=== PATIENT | female | born 1965 | race Caucasian/White ===

== ENCOUNTER → 2016-09-07 | Outpatient (CLI) | payer OTHER ==
[~2016-09-07] MED LIST: ALBUAER19 INH; ATOR10TA88 PO; CHOL100027 PO; DEXT30LI PO; DICL1GEL12 TOP; EFF/375 PO; EPP3/2 IM; FAMO1TAB47 PO; FLUT0.15; GABA-113 PO; GLC/500 PO; HYDR-3124 PO; HYDR-5688 PO; LOSA50TA6 PO; MONT1TAB3 PO; MULT-223 PO; OXYC-57 PO; PSEU60TA80 PO; RIZA5TAB10 PO; RXC5 PO; TIZA2CAP PO; TOPI100T20 PO; VENL150C PO
--- NOTE | 2016-09-07 16:07 | DIAGNOSTIC IMAGING REPORT ---
CT SCAN OF THE CHEST WITHOUT IV CONTRAST CLINICAL HISTORY: Dyspnea. COMPARISON STUDY: Chest CT dated 09/21/2013. Chest x-ray dated 05/04/2016. TECHNIQUE: CT scan of the thorax was performed from the thoracic inlet to the upper abdomen. Images are reviewed in the axial, sagittal, and coronal planes. IV contrast was not administered for this examination as per the referring clinician. The examination is degraded by large body habitus, and streak artifact in the body wall abutting the CT gantry. There is also streak artifact from the left arm which could not be elevated above the chest. CT DOSE: 1336.64 mGy.cm FINDINGS: Thyroid: Imaged portions of the thyroid gland are normal in size and attenuation. Thoracic aorta: The thoracic aorta is normal in caliber and demonstrates standard 3-vessel arch anatomy. Heart: The heart is normal in size and without pericardial effusion. The pulmonary trunk is normal in caliber. Lungs and pleural spaces: There are scattered calcified granulomas. The lungs and pleural spaces are otherwise clear. The trachea and central airways are patent. Mediastinum: There is no mediastinal lymphadenopathy. Glendy: Not well assessed without IV contrast. Axillae: There is no axillary lymphadenopathy. Upper abdomen: The liver is enlarged and there is severe hepatic steatosis. Partially visualized upper abdominal viscera is within normal limits. Skeletal structures: No lytic or blastic bony lesions are seen. IMPRESSION: 1. The lungs are clear. 2. Severe hepatic steatosis. Electronically signed by: Law Cid M.D. 09/07/2016 4:05 PM Dictated Date/Time: 09/07/2016 4:01 PM
== END | disposition home or self-care (01) ==
LOC: C.CTS 15:53
PROVIDERS: ATTEND Internal Medicine Pulmonary Disease
DX: R06.02 Shortness of breath (principal); K76.0 Fatty (change of) liver, not elsewhere classified

== ENCOUNTER → 2016-12-20 | Outpatient (CLI) | payer OTHER ==
[~2016-12-20] MED LIST changes: +ATOR10TA82 PO; -ATOR10TA88 PO; +COEN1CAP17 PO; +EFFSR150 PO; +EFFSR75 PO; +FEXO1TAB46 PO; +GLIP2.5T11 PO; +OXYC1TAB3 PO; +POTA550T4 PO; +SITA1TAB27 PO; +SODI10IN5 INJ; +TRAM-10 PO
[2016-12-20 15:58] LABS: BLOOD UREA NITROGEN 12 mg/dl (7-18); CREATININE 0.73 mg/dl (0.60-1.20)
== END | disposition home or self-care (01) ==
LOC: C.LAB 14:35
PROVIDERS: ATTEND Orthopaedic Surgery Sports Medicine
DX: Z01.812 Encounter for preprocedural laboratory examination (principal)

== ENCOUNTER 2017-01-19 05:25 | Day surgery (SDC) | payer OTHER ==
[2017-01-13 14:00] VITALS: Ht 174 cm; Wt 128.5 kg
--- NOTE | 2017-01-13 14:35 | PAT Medication Instructions ---
Service Date January 13, 2017. Current Home Medication List Atorvastatin (Lipitor), 10 MG PO HS Cholecalciferol (Vitamin D 1000 Unit), 2,000 INTER.UNIT PO QAM Dextromethorphan Polistirex (Delsym), 5 ML PO PRN Epinephrine (Epipen), 0.3 MG IM UD Famotidine (Famotidine), 20 MG PO QAM Gabapentin (Neurontin), 900 MG PO TID Hydrocodone/Acetaminophen 5MG/325MG ([place] 5MG/325MG), 1 TABLET PO Q6H PRN for N Losartan Potassium (Cozaar), 50 MG PO QAM Metformin Hcl (Glucophage), 500 MG PO BID Montelukast Sodium (Singulair), 1 TAB PO HS Multiple Vitamins W/ Minerals (Multi For Her 50+), 1 TAB PO QAM Pseudoephedrine-Guaifenesin (Mucinex D), 1 TAB PO BID PRN for PRN Rizatriptan Benzoate (Maxalt), 5 MG PO TID PRN for prn Venlafaxine Hcl (Effexor Xr), 150 MG PO QAM Venlafaxine Hcl (Effexor), 37.5 MG PO QAM Medication Instructions For Your Scheduled Surgery Epinephrine (Epipen), 0.3 MG IM UD (use as directed if needed) - Hold the following medications 48 hours prior to surgery: Metformin Hcl (Glucophage), 500 MG PO BID - Hold the following medications the morning of surgery: Multiple Vitamins W/ Minerals (Multi For Her 50+), 1 TAB PO QAM Pseudoephedrine-Guaifenesin (Mucinex D), 1 TAB PO BID PRN for PRN Losartan Potassium (Cozaar), 50 MG PO QAM Dextromethorphan Polistirex (Delsym), 5 ML PO PRN Cholecalciferol (Vitamin D 1000 Unit), 2,000 INTER.UNIT PO QAM - Take the following medications the morning of surgery with a sip of water: Venlafaxine Hcl (Effexor Xr), 150 MG PO QAM Venlafaxine Hcl (Effexor), 37.5 MG PO QAM Rizatriptan Benzoate (Maxalt), 5 MG PO TID PRN for prn Famotidine (Famotidine), 20 MG PO QAM Gabapentin (Neurontin), 900 MG PO TID Hydrocodone/Acetaminophen 5MG/325MG ([place] 5MG/325MG), 1 TABLET PO Q6H PRN for N (if needed okay to take up to 4 hours prior to surgery) - Take the following medications as scheduled the night before surgery: Rizatriptan Benzoate (Maxalt), 5 MG PO TID PRN for prn Montelukast Sodium (Singulair), 1 TAB PO HS Gabapentin (Neurontin), 900 MG PO TID Dextromethorphan Polistirex (Delsym), 5 ML PO PRN Atorvastatin (Lipitor), 10 MG PO HS Hydrocodone/Acetaminophen 5MG/325MG ([place] 5MG/325MG), 1 TABLET PO Q6H PRN for N If you have any questions please call us at [phone] or [phone] or [phone]
[2017-01-13 15:09] LABS: COMPLETE YES; EOS % 0.2 %; HEMATOCRIT 40.2 % (37-47); IG% 0.2 %; LYMPH % 34.3 %; LYMPH ABS # 2.23 K/uL (1.2-3.4); MEAN CELL VOLUME 92.8 fL (80-100); MEAN CORPUSCULAR HEMOGLOBIN 30.9 pg (25-34); MEAN CORPUSCULAR HGB CONC 33.3 g/dl (32-36); MEAN PLATELET VOLUME 10.3 fL (7.4-10.4); MONO % 8.9 %; NEUT % 56.4 %; PLATELET COUNT 180 K/uL (130-400); RED BLOOD COUNT 4.33 M/uL (4.2-5.4); WHITE BLOOD COUNT 6.51 K/uL (4.8-10.8)
[2017-01-13 15:33] LABS: PARTIAL THROMBOPLASTIN RATIO 1.1; PROTHROMBIN TIME (PATIENT) 10.4 SECONDS (9.0-12.0)
--- NOTE | 2017-01-18 18:01 | HISTORY & PHYSICAL EXAMINATION ---
DATE OF ADMISSION: 01/19/2017 CHIEF COMPLAINT: Chronic right shoulder pain. HISTORY OF PRESENT ILLNESS: This is a 51-year-old female patient of Dr. Welch'jenny complaining of right shoulder pain for approximately several months now. She had a rotator cuff repair in 2009, recently no injury. She had an MRI done with an arthrogram which showed possible SLAP injury and biceps injury. PAST MEDICAL HISTORY: Hypertension, hypercholesterolemia, sleep apnea with the use of CPAP, anxiety, diabetes mellitus, hypothyroidism, spine problems, sciatica, obesity, dental issues. SOCIAL HISTORY: Nonsmoker, nondrinker. She does use marijuana. PAST SURGICAL HISTORY: Left shoulder x2, right shoulder x1, back surgery and C-sections x2. FAMILY HISTORY: Noncontributory. REVIEW OF SYSTEMS: The patient complains of chronic right shoulder pain. Otherwise, denies any shortness of breath, chest pain, nausea, vomiting or any other joint complaints. MEDICATIONS: Include: 1. Atorvastatin 10 mg at bedtime. 2. Effexor 150 mg daily. 3. Gabapentin 600 mg t.i.d. 4. Pepcid 20 mg daily. 5. Losartan 50 mg daily. 6. Metformin 2 tablets 500 mg daily. 7. Benzoate 5 mg for headaches p.r.n. 8. Vicodin as needed. 9. Singulair 10 mg at bedtime p.r.n. 10. Vitamin daily. 11. Vitamin D 1000 units daily. ALLERGIES: DULOXETINE, CLINDAMYCIN, ASPIRIN AND ANTI-INFLAMMATORIES WHICH IS AN ANAPHYLACTIC INCLUDING ASPIRIN. PHYSICAL EXAMINATION: GENERAL: Well-developed, well-nourished 51-year-old female in no acute distress. She is alert and oriented x3 and pleasant. HEENT: Normocephalic, atraumatic. Extraocular motions are intact. Pupils are equal and reactive to light. HEART: Regular rate and rhythm, no murmurs appreciated. LUNGS: Clear. ABDOMEN: Soft, nontender, bowel sounds present. EXTREMITIES: Right shoulder reveals a positive [place]'s, positive cross chest, positive impingement sign, positive Speed's. She has full range of motion with pain. She has 5/5 strength with pain. NEUROLOGIC: Neurovascularly, she is intact in her right upper extremity. DIAGNOSES: Right shoulder biceps tendonitis and possible SLAP tear. She also has a history of hypertension, hypercholesterolemia, sleep apnea with the use of CPAP, anxiety, hypothyroidism, diabetes mellitus, spine problems, sciatica, obesity, and dental issues. PLAN: The patient was advised of her diagnosis. Indications, risks, benefits, and postop course have all been reviewed. The patient wishes to proceed with a right shoulder arthroscopic SLAP repair with or without a biceps tenodesis versus tenotomy. Necessary consent forms, preoperative testing and clearances will be obtained. MICKY
[~2017-01-19] VITALS: Ht 174 cm; Wt 128.5 kg
[~2017-01-19 05:25] MED LIST changes: -ALBUAER19 INH; -COEN1CAP17 PO; -DICL1GEL12 TOP; -EFFSR150 PO; -EFFSR75 PO; -FEXO1TAB46 PO; -FLUT0.15; -GLIP2.5T11 PO; -HYDR-3124 PO; -OXYC-57 PO; -OXYC1TAB3 PO; -POTA550T4 PO; -RXC5 PO; -SITA1TAB27 PO; -SODI10IN5 INJ; -TIZA2CAP PO; -TOPI100T20 PO; -TRAM-10 PO
[2017-01-19] MEDS ORDERED: LACTATED RINGER'S 1000ML 1,000 ML IV SCH (06:00)
[2017-01-19] MEDS ORDERED: VANCOMYCIN INJ 1,900 MG in SODIUM CHLORIDE 0.9% 500ML 500 ML IV SCH (06:00)
[2017-01-19 06:16] VITALS: BP 155/86; PULSE 66; TEMP 36.7; O2SAT 97
[2017-01-19] MEDS ORDERED: BUPIVACAINE 0.5 % 5 MG/1 ML PF 10ML VIAL ONE (06:30)
[2017-01-19] MEDS ORDERED: MEPIVACAINE HCL 1.5% 30 ML VIAL ONE (06:30)
[2017-01-19] MEDS ORDERED: CLONIDINE HCL 100 MCG/ML SYRINGE ONE (06:30)
[2017-01-19] MEDS ORDERED: MIDAZOLAM HCL 1 MG/ML 2ML VIAL ONE (07:02)
[2017-01-19] MEDS ORDERED: KETAMINE HCL INJ 50 MG/ML 10 ML VIAL ONE (07:03)
[2017-01-19] MEDS ORDERED: FENTANYL CITRATE INJ 50 MCG/1 ML 2 ML VIAL ONE (07:03)
--- NOTE | 2017-01-19 07:03 | History & Physical Bridge Note ---
H&P Re-Evaluation Bridge Note: I have examined the patient, reviewed the History & Physical and in the interval since the performance of the History & Physical I have noted the following changes of clinical significance: No changes noted
[2017-01-19] MEDS ORDERED: EpINEphrine HCL INJ 1 MG/ML 5ML SYRINGE ONE (07:11)
[2017-01-19] MEDS ORDERED: GLYCOPYRROLATE INJ 0.2 MG/ML VIAL ONE (08:15)
[2017-01-19] MEDS ORDERED: SUCCINYLCHOLINE 100MG/5ML SYR IV ONE (08:15)
[2017-01-19] MEDS ORDERED: LARYING-O-JET KIT (LTA) EXT ONE ×2 (08:15)
[2017-01-19] MEDS ORDERED: PROPOFOL IV EMULSION 10 MG/ML 20 ML VIAL IV ONE (08:15)
[2017-01-19] MEDS ORDERED: DEXAMETHASONE SOD INJ 4 MG/ML VIAL ONE (08:15)
[2017-01-19] MEDS ORDERED: LIDOCAINE HCL 2% 2 ML VIAL (20MG/ML) ONE (08:15)
[2017-01-19] MEDS ORDERED: NEOSTIGMINE METHYLSULFATE 5 MG/5 ML SYR ONE (08:15)
[2017-01-19] MEDS ORDERED: CISATRACURIUM BESYLATE IV SOLN 2 MG/ML 10 ML VIAL ONE (08:15)
[2017-01-19] MEDS ORDERED: METOCLOPRAMIDE HCL INJ 5 MG/ML 2 ML VIAL ONE (08:15)
[2017-01-19] MEDS ORDERED: EpHEDrine SULFATE INJ 50 MG/ML AMP ONE (08:53)
[2017-01-19] MEDS ORDERED: SODIUM CHLORIDE 0.9% 1000ML 1,000 ML IV SCH (09:21)
[2017-01-19] MEDS ORDERED: OXYC-57 PO (09:25)
--- NOTE | 2017-01-19 09:27 | Discharge Instructions ---
Discharge Instructions Date of Service January 19, 2017. Visit Reason for Visit: Right Shoulder Labral Tear, A/C Joint Arthritis, B Discharge Discharge Diagnosis / Problem: right shoulder arthroscopy, labral repair Discharge Goals Goal(s): Decrease discomfort, Improve function, Increase independence Activity Recommendations Activity Limitations: as noted below Anesthesia . Post Anesthesia Instructions: If you have had General Anesthesia or IV Sedation: * Do not drive today. * Resume driving when surgeon permits. * Do not make important decisions or sign legal documents today. * Call surgeon for: 1. Temperature elevations greater than 101 degrees F. 2. Uncontrollable pain. 3. Excessive bleeding. 4. Persistent nausea and vomiting. 5. Medication intolerance (nausea, vomiting or rash). * For nausea and vomiting use only clear liquids such as: tea, soda, bouillon until nausea subsides, then gradually increase diet as tolerated. * If you have any concerns or questions, call your surgeon's office. If physician is unavailable and it is an emergency, call 911 or go to the nearest emergency room. . Instructions / Follow-Up Instructions / [place] [facility] [place]: SHOULDER ARTHROSCOPY AND LABRAL REPAIR SELF CARE INSTRUCTIONS A. You are permitted to loosen your sling/immobilizer to move your elbow, wrist , and hand to prevent stiffness. You should use your well arm (good arm) to assist the operated extremity when trying to raise the arm away from the body, hygiene purposes. Do NOT actively try to use/engage your shoulder muscles in operative arm at this time. You should NOT do overhead activity, lifting, or attempt to reach behind your back. B. You may/may not be instructed to start Physical Therapy upon discharge depending upon the size and difficulty of the repair. You will be provided a prescription for therapy with specific restrictions, if needed, at time of discharge. C. At 48 hours post-operatively, you may change your dressing. (Leave white steri-strips intact if present). Use band-aids and change daily. You are allowed to shower at this time and get the incision area wet, but DO NOT soak or submerge incision area in water. (No baths, swimming pools, hot tubs) D. Do NOT apply soap or any ointment/lotions directly over incision. E. You may use ice as needed to operative shoulder SPECIAL CARE INSTRUCTIONS: VERY IMPORTANT TO READ AND REVIEW A. There are a few signs you need to watch for after you are home. Call [facility] at [phone] if you experience any of the following: a. Increased severe shoulder pain. Some pain is expected especially when you exercise b. Increased swelling in your shoulder or arm; pain or swelling in either upper extremity. (Note: swelling and stiffness is normal and expected for several weeks post op, depending on type of shoulder surgery you had). c. Any fluid or drainage from the incision; redness of the incision. d. Shortness of breath or chest pain. B. Please call [facility] at [phone] if you have any questions or concerns about your operation or recovery. C. Call your physician if: a. Temperature is greater than 101 degrees (F). b. Pain is not relieved by prescribed pain medications. c. Increase drainage or redness from incision. d. Unanswered questions or concerns. D. Pain Medication: a. You will be prescribed pain medication upon discharge that should last till your first post-operative appointment. b. If you experience nausea and/or skin rash, discontinue this medication and contact our office for an alternative medication. c. Caution- narcotic pain medication can cause constipation. FOLLOW UP VISIT: Please call [facility] at [phone] to schedule a follow up appointment 10-14 days from your surgery date. Diet Recommendations Recommended Home Diet: resume previous diet Procedures Procedures Performed: Right Shoulder Arthroscopy, Anterior Labral Repair, Subchromial Decompression, Distal Clavicle Excision and Extensive Debridement, Biceps Tenotomy Pending Studies Studies pending at discharge: no Medical Emergencies . Who to Call and When: Medical Emergencies: If at any time you feel your situation is an emergency, please call 911 immediately. . Non-Emergent Contact Non-Emergency issues call your: Primary Care Provider, Surgeon . . "Provider Documentation" section prepared by Hector Lyon. . [place] Drug Monitoring Program Search Results: patient reviewed within database, no issues identified
[2017-01-19] MEDS ORDERED: OXYCODONE/ACETAMINOPHEN 5-325 TAB PO PRN ×2 (09:30)
--- NOTE | 2017-01-19 09:40 | [facility] Operative Report ---
Operative Report Operative Date January 19, 2017. Pre-Operative Diagnosis Right shoulder biceps tendonitis, right labrum tear,acj arthritis Post-Operative Diagnosis same subacromial impingement,bursitis ,djd oa glenohumeral,biceps tendinopa Procedure(s) Performed right shoulder arthroscopy with decompression and distal clavicle excision and anterior labral repair and extensive debridement Surgeon Dr. Welch Savings Counselor Surgeon(s) none Estimated Blood Loss 5 cc Findings as above Specimens none per surgeon Anesthesia regional and general Complication(s) None Disposition Recovery Room / PACU Indications chronic pain I attest to the content of the Intraoperative Record and any orders documented therein. Any exceptions are noted below.
--- NOTE | 2017-01-19 10:12 | Anesthesiology Progress Note ---
Anesthesia Post Op Note Date & Time January 19, 2017 at 10:11 Vital Signs Pain Intensity: 0 Vital Signs Past 12 Hours Date Time Temp Pulse Resp B/P Pulse Ox O2 Delivery O2 Flow Rate FiO2 01/19/17 10:00 36.3 67 18 146/80 94 Nasal Cannula 2 01/19/17 09:50 63 18 151/84 99 Mask 8 01/19/17 09:40 63 18 165/87 100 Mask 10 01/19/17 09:30 36.0 56 16 171/92 99 Mask 15 01/19/17 06:16 36.7 66 18 155/86 97 Room Air Notes Mental Status: alert / awake / arousable, participated in evaluation Pt Amnestic to Procedure: Yes Nausea / Vomiting: adequately controlled Pain: adequately controlled Airway Patency, RR, SpO2: stable & adequate BP & HR: stable & adequate Hydration State: stable & adequate Anesthetic Complications: no major complications apparent
[2017-01-19] MEDS ORDERED: ATROPINE SULFATE 0.1 MG/ML 5ML SYR IV PRN (10:15)
[2017-01-19] MEDS ORDERED: EpHEDrine SULFATE INJ 50 MG/ML AMP IV PRN (10:15)
[2017-01-19 10:20] VITALS: BP 156/81; PULSE 70; TEMP 37.1; O2SAT 95
[2017-01-19 10:50] VITALS: BP 140/63; PULSE 70; TEMP 37; O2SAT 96
[2017-01-19 11:20] VITALS: BP 144/68; PULSE 69; TEMP 37.1; O2SAT 98
--- NOTE | 2017-01-19 11:49 | OPERATIVE REPORT ---
DATE OF OPERATION: 01/19/2017 INDICATION FOR PROCEDURE: A 51-year-old female with chronic right shoulder pain. History of previous rotator cuff repair of that shoulder. She has failed conservative management. Her preop x-rays demonstrate she has a narrowed AC joint with AC joint arthritis. She has some inferior spurs at the AC joint. She had had a previous decompression surgery. Her MRI demonstrates significant fluid in the AC joint consistent with arthritis. She does have some substantial spurs in the medial aspect of the acromion causing subacromial impingement. She has an intact rotator cuff repair. She has biceps tendinopathy deep in the bicipital groove. She has an anterior inferior labral tear and possibly could have a SLAP tear. She is also morbidly obese, BMI is 42.4. PREOPERATIVE DIAGNOSES: Right shoulder anterior labral tear, biceps tendinopathy, history of rotator cuff repair, history of previous decompression with continued impingement and acromioclavicular joint arthritis. POSTOPERATIVE DIAGNOSES: Same including both degenerative and traumatic anterior labral tear with unstable anterior inferior labrum with DJD glenohumeral joint with biceps tendonopathy with intact rotator cuff repair with chronic subacromial bursitis, bursal adhesions with subacromial impingement and acromioclavicular joint arthritis. PROCEDURES: Right shoulder arthroscopic repair anterior inferior labrum with revision subacromial decompression and a distal clavicle excision and extensive debridement and a tenotomy of the biceps and increased difficulty due to BMI of 42.4. SURGEON: Dr. Welch. TEMPLATE CLERK: None. ANESTHESIA: Regional block and general. OPERATION AND FINDINGS: OPERATIVE PROCEDURE: The patient taken to the operating room, anesthetized under regional block and general anesthetic. [facility] in a 70 degree beach chair position. Right shoulder exam demonstrates she had some ligamentous laxity, good range of motion of her shoulder, very obese arm. The right upper extremity was prepped and draped in sterile fashion. We used ChloraPrep. She had vancomycin antibiotic preop. Arthroscopy was started with a posterior arthroscopy portal in the soft spot, lateral portal in the subacromial space, anterior portal in the rotator interval. Intra-articular findings demonstrated that she had some grade 3 wear on the humeral head, more toward the anterior aspect of the humeral head toward the mid articular surface area. She had some superficial delaminating flaps and fraying. The rotator cuff repair was intact. Subscapularis was intact. The biceps tendon intraarticularly looked good but when it was withdrawn into the joint there was clearly fraying tendinopathic findings extending deep into the bicipital groove. There was no evidence of a SLAP tear, but there was a little bit of fraying in the superior labrum and the anterior inferior labrum at the area between the 4 and 5 o'clock position had a complete disruption from the anterior glenoid with exposed bone underneath the labrum. The inner margin of the labrum was frayed. Just superior to that at the 3 o'clock position middle glenohumeral ligament was still attached to the labrum which was still attached to the glenoid. Inferiorly, the labrum was attached normally at the 6 o'clock position. There was some generalized synovitis in the joint. In the subacromial space, there was some chronic bursal adhesions, subacromial bursitis. There was some substantial spurs in the anterior medial facet to the acromion with a type 3 shape to that portion of the acromion. There was large inferior AC joint facet spurs causing impingement. There was a hypertrophic AC joint with arthritis noted in the AC joint. The rotator cuff bursal surface had some fraying of the cuff tissue, but was not torn anywhere and was completely intact through full motion. There was subacromial impingement. Starting in the glenohumeral joint, I debrided the articular surfaces of the humeral head. I debrided the labrum, debrided the glenoid attachment to rough up the bony surface to a good bleeding surface for repair of the labrum. I did a debridement of biceps tendon and then did a tenotomy using a radiofrequency ablator. I debrided back some of the superior labrum. I did some partial synovectomy and ablated some bleeders with a radiofrequency ablator. The labrum was then repaired using a 1.3 mm FiberTak Arthrex suture tape anchor. We used a 25 degree angled suture passer to pass a suture. Tied these down with Taylor sliding locking knot 3 reverse half hitches on alternating posts. Post was placed on the capsular side and knot was well off the joint and the repair was secure. The arthroscopic instrumentation was then placed into the subacromial space, did a thorough subacromial bursectomy, debrided the bursal surface of the rotator cuff, used an ablator to remove any periosteum bursa on the undersurface of the acromion, ablated the inferior AC joint capsule which was already partially torn, but ablated some more of it to expose 1 cm of distal clavicle. A 4.5 bur was used to plane down the acromion to a type 1 flat shape removing all of the spurs and also 1 cm distal clavicle was resected maintaining the superior and posterior capsule for stability. All debris was irrigated out of the subacromial space. The portal sites were closed with nylon sutures. Sterile dressings were applied and a shoulder immobilizer. There was increased difficulty due to her BMI of 42. She tolerated the procedure well. I attest to the content of the Intraoperative Record and any orders documented therein. Any exceptio ns are noted below.
[2017-06-20] MEDS ORDERED: POTA550T4 PO (15:25)
[2017-06-20] MEDS ORDERED: FEXO1TAB46 PO (15:25)
[2017-06-20] MEDS ORDERED: TRAM-10 PO (15:25)
[2017-06-20] MEDS ORDERED: SODI10IN5 INJ (15:25)
[2017-06-20] MEDS ORDERED: COEN1CAP17 PO (15:25)
== END 2017-01-19 11:40 | disposition home or self-care (01) ==
LOC: C.ACU 05:25
PROVIDERS: ATTEND Orthopaedic Surgery Sports Medicine
DX: M19.011 Primary osteoarthritis, right shoulder (principal); M25.811 Other specified joint disorders, right shoulder; S46.801A Unspecified injury of other muscles, fascia and tendons at shoulder and upper arm level, right arm, initial encounter; M75.51 Bursitis of right shoulder; X58.XXXA Exposure to other specified factors, initial encounter; I10 Essential (primary) hypertension; E78.00 Pure hypercholesterolemia, unspecified; G47.30 Sleep apnea, unspecified; E11.9 Type 2 diabetes mellitus without complications; E03.9 Hypothyroidism, unspecified; F41.9 Anxiety disorder, unspecified; E66.9 Obesity, unspecified; Z68.41 Body mass index [BMI] 40.0-44.9, adult; Z79.84 Long term (current) use of oral hypoglycemic drugs; Z79.899 Other long term (current) drug therapy

== ENCOUNTER 2017-06-12 13:27 | Emergency (ER) | payer OTHER ==
[~2017-06-12] VITALS: Ht 172.7 cm; Wt 122.0 kg
[~2017-06-12 13:27] MED LIST changes: -HYDR-5688 PO; +OXYC-57 PO
[2017-06-12 13:55] VITALS: TEMP 36.8; Ht 172.7 cm; Wt 122.0 kg
[2017-06-12] MEDS ORDERED: GLIP2.5T11 PO (14:41)
[2017-06-12] MEDS ORDERED: SITA1TAB27 PO (14:41)
[2017-06-12] MEDS ORDERED: EFFSR150 PO (14:46)
[2017-06-12] MEDS ORDERED: EFFSR75 PO (14:46)
--- NOTE | 2017-06-12 15:13 | DIAGNOSTIC IMAGING REPORT ---
R KNEE 3 VIEWS CLINICAL HISTORY: Right knee pain COMPARISON: None. DISCUSSION: There are mild osteoarthritic changes. No fractures are visualized. There are no destructive lesions. IMPRESSION: No fractures identified. Electronically signed by: Hilario Delacruz M.D. 06/12/2017 3:12 PM Dictated Date/Time: 06/12/2017 3:11 PM
--- NOTE | 2017-06-12 15:13 | DIAGNOSTIC IMAGING REPORT ---
R HIP UNILATERAL 2 VIEWS CLINICAL HISTORY: Right hip pain COMPARISON: None. DISCUSSION: No fractures or dislocations are visualized. IMPRESSION: No fractures or dislocations identified. Electronically signed by: Hilario Delacruz M.D. 06/12/2017 3:11 PM Dictated Date/Time: 06/12/2017 3:10 PM
--- NOTE | 2017-06-12 15:14 | DIAGNOSTIC IMAGING REPORT ---
R FEMUR 2 VIEWS ROUTINE CLINICAL HISTORY: Right leg pain COMPARISON: None. DISCUSSION: No fractures are visualized. There are no erosive or destructive changes. IMPRESSION: No fractures identified. No destructive lesions are visualized. Electronically signed by: Hilario Delacruz M.D. 06/12/2017 3:12 PM Dictated Date/Time: 06/12/2017 3:12 PM
[2017-06-12] MEDS ORDERED: OXYC1TAB3 PO (15:39)
[2017-06-12 16:07] VITALS: BP 128/69; PULSE 89; O2SAT 95
--- NOTE | 2017-06-13 13:10 | EMERGENCY ROOM VISIT NOTE ---
ED Visit Note First contact with patient: 14:15 Chief Complaint: I hurt my right knee. History of Present Illness: Ms. Chamorro is a 52-year-old white female who ambulates into the ED accompanied by female friend complaining of right knee pain. Historically patient denies any previous significant injuries or surgeries to her right knee. She does report she has a history of severe neuropathy in her lower extremities and she is currently in physical therapy for her lower extremities; she relates that she has had 5 muscular problems including a tight muscles and fascia. Patient reports approximately one hour before she arrived in the emergency department she reports she ran 3 steps with her grandson heard a cracking noise and had severe pain in her right knee. Since that time her pain has been constant. She places her discomfort over the right knee. She rates her discomfort 7/10. She reports her pain is radiating up her thigh and in towards her right hip and down her leg to the level of the ankle. Her pain worsens with ambulation, palpation of the hip, thigh and knee, flexion of the knee beyond 90 and all movements of the hip. She denies back pain, ankle pain, foot pain, leg weakness, worsening numbness/ tingling. Review of Systems: As noted above in history of present illness. Past Medical History: As previously noted, diabetes, hypertension, bronchitis, pneumonia, status post section, unspecified knee surgeries and unspecified lumbar back surgery. Current Medications: Vitamin D, multivitamins, Maxalt, Glucophage, Neurontin, Cozaar, glipizide, Effexor, Famotidine, Januvia. Allergies to Medications: NSAIDs, penicillin. Social History: Patient is currently employed; she feels safe in her home environment; she denies tobacco use and admits to alcohol use. Physical Examination: Vital Signs: Date Time Temp Pulse Resp B/P (MAP) Pulse Ox O2 Delivery O2 Flow Rate FiO2 06/12/17 16:07 89 20 128/69 95 06/12/17 13:55 36.8 102 20 136/86 93 Room Air GENERAL: 52-year-old female in mild to moderate distress due to pain, nontoxic- appearing, afebrile and hemodynamically stable. NEUROLOGICAL: Awake, alert and oriented to person, place and time. Answering questions appropriately and following commands. SKIN: Warm, dry and pink. No soft tissue eruptions or trauma noted. BACK: No tenderness over the thoracic or lumbar bony spine or in the paraspinous musculature. RIGHT LOWER EXTREMITY: No gross bony deformity. No shortening or malrotation. Moderate tenderness over the hip joint including the greater trochanter and upper femoral shaft without bony deformity, bony crepitus, swelling. Moderate tenderness over the lateral aspect including the lateral aspect of the hamstring and quadriceps muscle groups without muscle defect, swelling or ecchymosis. Moderate tenderness over the anterior knee without bony deformity or crepitus. No tenderness over the patellar tendon, medial and lateral joint line or posterior knee. Mild tenderness throughout the anterior lower leg over the tibial plateau without bony deformity, bony crepitus, swelling or ecchymosis. Unable to perform range of motion exercises at the hip due to pain with all movement including internal and neck sternal rotation. Negative patellar apprehension test. Negative ballottement test. No laxity of the collateral and cruciate ligaments. Unable to perform a Dami's test because of pain and limited range of motion. Full range of motion in plantar flexion, dorsiflexion, inversion and eversion of the ankle. No ligamentous laxity at the level of the ankle. Throughout the foot the skin was warm and pink and capillary refill is brisk. She had difficulty assessing light sensations but did report when I pushed on her great toe she had paresthesias throughout the foot and up the anterior portion of her lower leg. She has 4/5 muscle strength and plantar flexion and dorsiflexion of the ankle. ED Course: Patient is assessed as noted above. Patient's medication list was reviewed. Femur X-Rays: Were read by myself and the radiologist showing no acute fractures and no erosion or distracted changes. Hip X-Rays: Were read by myself and the radiologist showing no acute fractures or dislocations. Knee X-Rays: Were read by myself and the radiologist showing no acute fractures or dislocations. Radiologist shows mild osteoarthritic changes but no destructive lesions. I did have a lengthy conversation with the patient primarily about mobility and her pain. She expressed concerns that she could not bear weight because of the intensity of her pain. She does report she has a wheelchair and I recommended that she use this but she said that would be difficult in her current living situation. She also reports that she is out of her narcotic pain medication that she normally gets from her orthopedist. I did tell her I would give her a short 3 day prescription of her OxyIR and we could trial her on a walker; she refused walker. A knee immobilizer was offered and she accepted. Patient was educated about today's findings and instructed on her treatment plan ; she verbalized understanding and agreement with this plan. Clinical Impression: Right anterior knee pain. Right hip, thigh and lower leg pain. Decision-Making: Initially my differential diagnosis I considered knee fracture , patellar dislocation, hip fracture, hip dislocation, muscle strain, patellar tendon rupture and other causes. Disposition: Patient discharged home in stable condition accompanied by female friends; prior to discharge she was reassessed and subjectively reported she was not feeling any better and rated her discomfort 7/10. Plan: Patient was encouraged to use 5-10 mg of OxyIR every 6 hours as needed for pain ; she was instructed on appropriate narcotic precautions. Patient was encouraged use ice on areas of pain and swelling 5-6 times a day for 20-30 minutes. Patient was encouraged to use knee immobilizer and wheelchair until followed up with software specialist. Patient was encouraged to call her software specialist for follow-up care and treatment. Patient was encouraged return the ED for worsening pain, uncontrolled swelling, worsening numbness of her leg or foot, inability to move her hip, knee, foot or any new/concerning symptoms.
[2017-06-20] MEDS ORDERED: FEXO1TAB46 PO (15:25)
[2017-06-20] MEDS ORDERED: TRAM-10 PO (15:25)
[2017-06-20] MEDS ORDERED: SODI10IN5 INJ (15:25)
[2017-06-20] MEDS ORDERED: POTA550T4 PO (15:25)
[2017-06-20] MEDS ORDERED: COEN1CAP17 PO (15:25)
== END 2017-06-12 16:09 | disposition home or self-care (01) ==
LOC: C.EDB 13:29 → C.EDD 16:09
DX: M25.561 Pain in right knee (principal); M25.551 Pain in right hip; M79.651 Pain in right thigh; M79.661 Pain in right lower leg; G57.93 Unspecified mononeuropathy of bilateral lower limbs; E11.9 Type 2 diabetes mellitus without complications; I10 Essential (primary) hypertension